=== PATIENT | female | born 1960 | race African-American/Black ===

== ENCOUNTER 2022-06-10 15:04 | Inpatient (IN) | payer BC, SELFPAY ==
[2022-06-10] VITALS (10 sets, daily range): BP systolic 126–168; BP diastolic 56–107; PULSE 89–160; RESP 12–34; TEMP 36.9; O2SAT 90–97; BMI 22.7
--- NOTE | 2022-06-10 16:43 | CRLHL7_ITS ---
For Patients: As a result of the Century Cures Act, medical imaging exams and procedure reports are released immediately into your electronic medical record. You may view this report before your referring provider. If you have questions, please contact your health care provider. Indication: Shortness of breath Comparison: None available. Technique: PA and lateral views of the chest Findings: There are bibasilar pleural effusions with adjacent compressive atelectasis versus infiltrates with mildly increased interstitial markings likely representing mild pulmonary edema. The cardiac silhouette is enlarged with minimal tortuous thoracic aorta. The bony thorax is grossly intact. Impression: Bibasilar pleural effusions with adjacent compressive atelectasis versus infiltrates and mild superimposed pulmonary edema. Dictated by Franco Jimenes MD @ 06/10/2022 6:24:46 PM (Electronically Signed)
--- NOTE | 2022-06-10 17:01 | ED.SOB ---
HPI - SOB/Dyspnea General Chief Complaint: Shortness of Breath/Dyspnea Stated Complaint: Short of Breath Retaining Fluid Time Seen by Provider: 06/10/22 16:00 Source: patient and RN notes reviewed Mode of arrival: ambulatory Limitations: no limitations History of Present Illness HPI Narrative: 61-year-old woman presenting to the emergency department with concern of some shortness of breath and swelling of her legs. Ten days at least. A 12 days ago ran out of what looks to be lisinopril and hydrochlorothiazide. 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 She had tried to reach her primary before departure but could not connect and so ran out of her medications again about 12 days ago. Is the only medication she takes endorses a history of hypertension and edema in the lower extremities also a history of right rib rotator cuff repair and then later when I inquire further apparently has had some anemia but does not treat this. Is not describing any melena or hematochezia. She denies any fevers not really having any pain she starts crying when I inquire further about her symptoms noting she is particularly short of air when she is lying down. She is afraid. I can also appreciate the puffiness that they are noting under her eyes as well. Denies a cardiac history beyond hypertension. Lately she also notes her stomach has seemingly been swollen. normally weighs 120 lb but thinks must be a lot more than that now. Has also been coughing. Has never retained fluid in her lungs before she says. Related Data Previous Rx's Medication Instructions Recorded furosemide 40 mg tablet 40 mg PO DAILY #10 tabs 06/10/22 metoprolol succinate 25 mg 25 mg PO DAILY #10 tabs 06/10/22 tablet,extended release 24 hr potassium chloride 20 mEq 20 meq PO DAILY #10 tabs 06/10/22 tablet,extended release Allergies Allergy/AdvReac Type Severity Reaction Status Date / Time Sulfa (Sulfonamide Allergy Unknown Verified 06/10/22 20:32 Antibiotics) Review of Systems Status of ROS: Reports: 10 or more systems reviewed and unremarkable except as noted in History and below [facility] Medical History (Updated 06/11/22 @ 02:39 by Domingo Monroe MD) Congestive heart failure (CHF) Hypertension Surgical History (Updated 08/15/22 @ 17:13 by Judith Chadwick RN) S/P rotator cuff repair Social History Highest level of school completed/degree received: 12th grade, no diploma Smoking Status: Former smoker What tobacco products do you use: cigarettes Smoking quit date/years: <= 15 years ago and cigars Do you use any of these nicotine containing products: None Second hand tobacco smoke exposure: Yes (from spouse) How often do you have a drink containing alcohol: monthly or less Alcohol type: wine How many standard drinks containing alcohol do you have on a typical day: 1 or 2 How often do you have six or more drinks on one occasion: Never AUDIT-C Alcohol total score: 1 Non-prescribed substance use: denies use Caffeine: Yes service: No Exam Narrative: Exam Narrative: pleasant. labored in breathing and tachypneic but able to complete sentences. has thinning hair On her head. Neck is supple. JVD is elevated lungs equal expansion excursion. Diminished breath sounds on the right lower lung field. Crepitus bibasilarly. CV is a little distant. Appears to be in regular rate and rhythm. Split S1 abdomen is protuberant soft nontender. Does appear to have a sensation of fluid wave on palpation. No peritoneal signs. Is moving all extremities without difficulty. Appears well perfused. There is a little more than 1+ pitting edema knees down bilaterally. Negative Homans. No pain to palpation. Const: Vital Signs, click to edit/add: Vital Signs - 24 hr 06/10/22 15:56 06/10/22 17:00 06/10/22 18:47 Temperature 98.5 F Pulse Rate Pulse Rate [Apical ] 89 93 Pulse Rate [Pulse Oximeter] Respiratory Rate 32 H 20 12 Blood Pressure [Le ft Arm] Blood Pressure [Le ft Upper Arm] 160/76 H 134/107 H 144/56 H Pulse Oximetry 94 97 95 Oxygen Delivery Me thod Room Air Room Air Oxygen Flow Rate 06/10/22 20:30 06/10/22 23:19 06/10/22 21:30 Temperature Pulse Rate Pulse Rate [Apical ] 160 H 92 Pulse Rate [Pulse Oximeter] Respiratory Rate 26 H 20 30 H Blood Pressure [Le ft Arm] Blood Pressure [Le ft Upper Arm] 161/82 H 150/77 H 168/83 H Pulse Oximetry 93 97 96 Oxygen Delivery Me thod Room Air Room Air Oxygen Flow Rate 06/10/22 18:00 06/10/22 22:00 06/10/22 23:00 Temperature Pulse Rate Pulse Rate [Apical ] 91 92 146 H Pulse Rate [Pulse Oximeter] Respiratory Rate 34 H 24 27 H Blood Pressure [Le ft Arm] Blood Pressure [Le ft Upper Arm] 145/74 H 142/63 H 150/77 H Pulse Oximetry 93 97 Oxygen Delivery Me thod Room Air Oxygen Flow Rate 06/10/22 23:30 06/11/22 00:00 06/11/22 00:30 Temperature Pulse Rate Pulse Rate [Apical ] 126 H 113 H 117 H Pulse Rate [Pulse Oximeter] Respiratory Rate 28 H 28 H 30 H Blood Pressure [Le ft Arm] Blood Pressure [Le ft Upper Arm] 126/62 126/62 121/61 Pulse Oximetry 90 90 94 Oxygen Delivery Me thod Room Air Room Air Oxygen Flow Rate 06/11/22 01:00 06/11/22 03:00 06/11/22 02:00 Temperature Pulse Rate Pulse Rate [Apical ] 122 H 72 130 H Pulse Rate [Pulse Oximeter] Respiratory Rate 31 H 26 H 28 H Blood Pressure [Le ft Arm] Blood Pressure [Le ft Upper Arm] 124/79 124/79 127/88 Pulse Oximetry 90 96 94 Oxygen Delivery Me thod Room Air Nasal Cannula Nasal Cannula Oxygen Flow Rate 2 2 06/11/22 02:30 06/11/22 01:30 06/11/22 03:47 Temperature 98.5 F Pulse Rate Pulse Rate [Apical ] 123 H 116 H Pulse Rate [Pulse Oximeter] 72 Respiratory Rate 26 H 26 H 20 Blood Pressure [Le ft Arm] 132/56 L Blood Pressure [Le ft Upper Arm] 125/74 133/74 Pulse Oximetry 98 89 94 Oxygen Delivery Me thod Nasal Cannula Room Air Room Air Oxygen Flow Rate 2 06/11/22 03:47 06/11/22 04:12 06/11/22 02:00 Temperature Pulse Rate 74 Pulse Rate [Apical ] Pulse Rate [Pulse Oximeter] Respiratory Rate 20 Blood Pressure [Le ft Arm] Blood Pressure [Le ft Upper Arm] Pulse Oximetry 94 94 Oxygen Delivery Me thod Room Air Nasal Cannula Oxygen Flow Rate 2 06/11/22 08:30 Temperature 98.5 F Pulse Rate Pulse Rate [Apical ] Pulse Rate [Pulse Oximeter] 75 Respiratory Rate 16 Blood Pressure [Le ft Arm] 107/85 Blood Pressure [Le ft Upper Arm] Pulse Oximetry 96 Oxygen Delivery Me thod Room Air Oxygen Flow Rate Documenting provider has reviewed patient's vital signs: yes Course Course Hospital Course: Exam and interview as above. Initial chest x-ray reviewed by me shows bibasilar small effusions and some pulmonary edema. EKG reviewed by me shows low amplitude generally rate of 87 it is in sinus rhythm though. Relatively speaking does appear to be some mild left atrial enlargement proBNP elevated as is D-dimer at 2.1 Consultations Consultation #1: anticipating admission i spoke initially with our hospitalist there was question of meeting criteria for admission; we did try to explore outpatient plan . later in course discussed with Cardiology confirming concerns of cardioversion Vital Signs Vital signs: Initial Vital Signs Temperature 98.5 F 06/10/22 15:56 Temperature Source Temporal Artery Scan 06/10/22 15:56 Pulse Rate 89 06/10/22 15:56 Pulse Rhythm 06/10/22 15:56 Respiratory Rate 32 H 06/10/22 15:56 Blood Pressure 160/76 H 06/10/22 15:56 Blood Pressure Mean 104 06/10/22 15:56 Pulse Oximetry 94 06/10/22 15:56 Oxygen Delivery Method 06/10/22 15:56 Vital Signs Temperature 98.5 F 06/10/22 15:56 Pulse Rate 89 06/10/22 15:56 Respiratory Rate 32 H 06/10/22 15:56 Blood Pressure 160/76 H 06/10/22 15:56 Pulse Oximetry 94 06/10/22 15:56 Oxygen Delivery Method 06/10/22 15:56 Temperature 98.5 F 06/11/22 08:30 Pulse Rate 75 06/11/22 08:30 Respiratory Rate 16 06/11/22 08:30 Blood Pressure 107/85 06/11/22 08:30 Pulse Oximetry 96 06/11/22 08:30 Oxygen Delivery Method 06/11/22 08:30 Oxygen Flow Rate 2 06/11/22 03:00 MDM - SOB/Dyspnea MDM Narrative Medical decision making narrative: with evidence of heart failure I did order 1 dose of sublingual nitroglycerin and 40 mg IV Lasix. She has had a couple of trips to the bathroom and notes herself to be feeling a little less full. Clearly is more energetic. Still a little labored in breathing. Hemoglobin low at 8.9. Generally low cell lines. INR little bit elevated 1.24. Venous blood gases WNL. chemistries unremarkable other than alkaline phosphatase 356. Troponin normal. Urinalysis with 2+ blood none on micro COVID testing negative. given occupation, dyspnea pulmonary embolus certainly the differential. My other concern is elevated alkaline phosphatase. CT scan chest abdomen pelvis is ordered. findings included --FINDINGS: CHEST There is a somewhat bulky, nodular appearing thyroid gland. The thoracic aorta is non aneurysmal with scattered atherosclerotic calcification. There is no filling defect to suggest pulmonary embolus. There are enlarged mediastinal and hilar lymph nodes. There is no definite axillary adenopathy. There is right greater than left basilar pleural effusion with adjacent compressive atelectasis. There is mild central bronchial thickening and minimal mucoid impaction of the lower lobe bronchi. There are mildly increased interstitial markings likely representing minimal pulmonary vascular congestion. The thoracic osseus structures are intact without fracture, lytic, or blastic lesion. The thoracic vertebral body heights are grossly maintained with minimal endplate Schmorl`s defects. There is no spondylolisthesis or displaced fracture. ABDOMEN AND PELVIS The liver is enlarged and markedly heterogeneous in appearance without obvious focal abnormality. There is minimal perihepatic fluid. There is mild periportal edema. The spleen is normal in attenuation and size. The gallbladder is somewhat contracted in appearance. There is no intrahepatic or common ductal dilatation. The stomach and duodenum are grossly unremarkable. There is moderate pancreatic atrophy. The adrenal glands are unremarkable without evidence of adenoma. The kidneys are preserved and corticomedullary differentiation. There is no hydronephrosis or radiopaque calculus. There is a moderate diffuse amount of intracolonic stool. There is minimal distal colonic diverticulosis. The appendix is unremarkable without significant inflammatory change. The abdominal aorta is nonaneurysmal with no significant atherosclerotic disease. The remaining solid pelvic viscera are otherwise grossly unremarkable. There are moderately prominent epigastric and retroperitoneal lymph nodes. Additional somewhat prominent bilateral pelvic sidewall and iliac chain lymph nodes are appreciated. The anterior abdominal wall is grossly intact without significant hernias. There is minimal fluid seen within the dependent pelvis. There is mild to moderate body wall edema. Demonstration of a somewhat heterogeneous appearing uterus with focal nonspecific enhancement expected at the location of the endometrial canal. Degenerative changes of the bilateral hips and sacroiliac joints are appreciated. The lumbar vertebral body heights are grossly maintained with mild straightening of the normal lumbar lordosis. There is no significant spondylolisthesis or displaced fracture. Impression: 1. Right greater than left basilar pleural effusion with adjacent compressive atelectasis and/or infiltrates with moderate central bronchial thickening. No evidence of pulmonary embolus. 2. Markedly enlarged heterogeneous somewhat nutmeg appearing liver which may represent sequela of hepatitis with periportal edema. 3. Mild ascites fluid seen throughout the 4 quadrants of the abdomen predominantly in the upper quadrants. 4. Enlarged epigastric, retroperitoneal, pelvic sidewall and inguinal lymph nodes which may be reactive in nature; however, a subtle, early lymphoproliferative malignancy may not be entirely excluded. 5. Somewhat heterogeneous thickened appearance of the endometrium with a focal area of enhancement. Consider further evaluation with pelvic ultrasound for improved characterization. Please note that all CT scans at this facility use dose modulation, iterative reconstruction, and/or weight-based dosing when appropriate to reduce radiation dose to as low as reasonably achievable. Dictated by Franco Jimenes MD @ 06/10/2022 8:05:57 PM I discussed potential admission as further evaluation could be done. Anxious in that regard as feels she has too much to do And is worried about being sent home from her [employer] job.. Apparently here was unwell and so she has been doing the driving. Anticipating departing the emergency department and about to order metoprolol succinate when she has demonstrated a run of tachycardia over 200. This spontaneously resolves. Returns again looks to be atrial fibrillation 170s- 80s and resolves then returns persistently. repeat EKG does show atrial fibrillation RVR rate of 163. During all of these episodes patient is asymptomatic. Initiated on 500 mL normal saline 20 g of diltiazem along with the metoprolol succinate 25 mg. Is also given IV magnesium. rate improves somewhat into the low 100s-1- teens. does not convert. Patient able to rest. once falls asleep does become further hypoxic. I would suspect that has been in atrial fibrillation more often than known and might be etiology of now systolic heart failure.. discussed with colleague and Cardiology with understandable concern of cardioversion. Would be candidate for anticoagulants. Considered RAISA and immediate cardioversion however no beds at [facility] or related hospitals. At this time I anticipate admission for rate control and establishment of anticoagulation. discussed other findings from CT imaging as well follow-up. Pending at this time is TSH Lab Data Labs: Lab Results 06/10/22 06/10/22 06/10/22 Range/Units 16:45 17:10 17:10 WBC 3.76 L (4.50-11.00) K/uL RBC 4.17 (4.00-5.20) m/uL Hgb 8.9 L (12.0-16.0) gm/dL Hct 30.2 L (33.0-51.0) % MCV 72 L (80-100) fL MCH 21 L (26-34) pg MCHC 30 L (32-36) gm/dL RDW Coeff of Geovanna 18.9 H (11.5-15.5) % Plt Count 86 L (140-440) K/uL Neut % (Auto) 41.8 L (42.0-72.0) % Lymph % (Auto) 45.7 H (20-44) % [place] % (Auto) 11.7 H (0.0-11.0) % Eos % (Auto) 0.5 (0.0-7.0) % Baso % (Auto) 0.3 (0.0-3.0) % Neut # (Auto) 1.60 L (1.7-7.0) K/uL Lymph # (Auto) 1.70 (0.90-2.90) K/uL [place] # (Auto) 0.40 (0.00-0.90) K/UL Eos # (Auto) 0.00 (0.00-0.50) K/uL Baso # (Auto) 0.00 (0.00-0.30) K/uL Abs Immat Gran (auto) 0.00 (0.00-0.30) K/uL Absolute Retic (0.03-0.08) # Percent Retic (0.5-2.0) % Immature Retic Fraction (3.0-15.9) % Retic Hgb Equivalent (29.0-35.0) pg INR 1.24 H (0.91-1.10) APTT 30 (23-33) Seconds D-Dimer Quant (PE/DVT) 2.12 H (0.00-0.50) ug/ml VBG pH (7.32-7.43) VBG pCO2 (40-50) mmHG VBG pO2 (25-47) mmHG VBG HCO3 (21-28) mmol/L Sodium (135-149) mmol/L Potassium (3.6-5.1) mmol/L Chloride (96-114) mmol/L Carbon Dioxide (20-32) mmol/L BUN (7-30) mg/dL Creatinine (0.5-1.5) mg/dL Estimated Creat Clear Estimated GFR ml/min Glucose (60-115) mg/dL Hemoglobin A1c (0-5.6) % Lactate (0.5-1.9) mmol/L Calcium (8.4-10.6) mg/dL Ionized Calcium Diandra (1.11-1.30) mmol/L Magnesium (1.5-2.6) mg/dL Ferritin (11.1-264.0) ng/mL Total Bilirubin (0.1-1.5) mg/dL Direct Bilirubin (0.0-0.5) mg/dL GGT (8-55) U/L AST (12-35) U/L ALT (4-35) U/L Alkaline Phosphatase (40-150) U/L Total Creatine Kinase (41-117) U/L Troponin I (0.01-0.04) ng/mL C-Reactive Protein (0.5-1.0) mg/dL NT-Pro-B Natriuret Pep (0-125) PG/mL Total Protein (6.0-8.3) g/dL Albumin (3.3-5.0) g/dL Lipase (23-300) U/L Procalcitonin (<0.50) ng/mL TSH (0.270-4.20) uIU/mL Urine Color (Yellow) Urine Appearance (Clear) Urine pH (5.0-8.5) Ur Specific [place] (1.000-1.030) Urine Protein (Negative) Urine Glucose (UA) (Negative) Urine Ketones (Negative) Urine Blood (Negative) Urine Nitrite (Negative) Urine Bilirubin (Negative) Urine Urobilinogen (0.2-1.0) Ur Leukocyte Esterase (Negative) Urine RBC (0-2) Urine WBC (0-5) Ur Squamous Epith Cells (None-Few) Urine Bacteria (None) SARS-CoV-2 (PCR) (Negative) POC Troponin I 0.00 L (0.01-0.04) ng/ml 06/10/22 06/10/22 06/10/22 Range/Units 17:10 17:10 17:10 WBC (4.50-11.00) K/uL RBC (4.00-5.20) m/uL Hgb (12.0-16.0) gm/dL Hct (33.0-51.0) % MCV (80-100) fL MCH (26-34) pg MCHC (32-36) gm/dL RDW Coeff of Geovanna (11.5-15.5) % Plt Count (140-440) K/uL Neut % (Auto) (42.0-72.0) % Lymph % (Auto) (20-44) % [place] % (Auto) (0.0-11.0) % Eos % (Auto) (0.0-7.0) % Baso % (Auto) (0.0-3.0) % Neut # (Auto) (1.7-7.0) K/uL Lymph # (Auto) (0.90-2.90) K/uL [place] # (Auto) (0.00-0.90) K/UL Eos # (Auto) (0.00-0.50) K/uL Baso # (Auto) (0.00-0.30) K/uL Abs Immat Gran (auto) (0.00-0.30) K/uL Absolute Retic (0.03-0.08) # Percent Retic (0.5-2.0) % Immature Retic Fraction (3.0-15.9) % Retic Hgb Equivalent (29.0-35.0) pg INR (0.91-1.10) APTT (23-33) Seconds D-Dimer Quant (PE/DVT) (0.00-0.50) ug/ml VBG pH 7.382 (7.32-7.43) VBG pCO2 38 L (40-50) mmHG VBG pO2 41.4 (25-47) mmHG VBG HCO3 22 (21-28) mmol/L Sodium 140 (135-149) mmol/L Potassium 4.3 (3.6-5.1) mmol/L Chloride 111 (96-114) mmol/L Carbon Dioxide 21 (20-32) mmol/L BUN 13 (7-30) mg/dL Creatinine 0.6 (0.5-1.5) mg/dL Estimated Creat Clear 43.45 Estimated GFR 101 ml/min Glucose 92 (60-115) mg/dL Hemoglobin A1c (0-5.6) % Lactate (0.5-1.9) mmol/L Calcium 8.5 (8.4-10.6) mg/dL Ionized Calcium Diandra (1.11-1.30) mmol/L Magnesium 1.7 (1.5-2.6) mg/dL Ferritin (11.1-264.0) ng/mL Total Bilirubin 0.9 (0.1-1.5) mg/dL Direct Bilirubin 0.5 (0.0-0.5) mg/dL GGT (8-55) U/L AST 34 (12-35) U/L ALT 23 (4-35) U/L Alkaline Phosphatase 356 H (40-150) U/L Total Creatine Kinase (41-117) U/L Troponin I < 0.01 L (0.01-0.04) ng/mL C-Reactive Protein 0.8 (0.5-1.0) mg/dL NT-Pro-B Natriuret Pep 2630 H (0-125) PG/mL Total Protein 6.3 (6.0-8.3) g/dL Albumin 3.3 (3.3-5.0) g/dL Lipase (23-300) U/L Procalcitonin 0.10 (<0.50) ng/mL TSH (0.270-4.20) uIU/mL Urine Color (Yellow) Urine Appearance (Clear) Urine pH (5.0-8.5) Ur Specific [place] (1.000-1.030) Urine Protein (Negative) Urine Glucose (UA) (Negative) Urine Ketones (Negative) Urine Blood (Negative) Urine Nitrite (Negative) Urine Bilirubin (Negative) Urine Urobilinogen (0.2-1.0) Ur Leukocyte Esterase (Negative) Urine RBC (0-2) Urine WBC (0-5) Ur Squamous Epith Cells (None-Few) Urine Bacteria (None) SARS-CoV-2 (PCR) Negative SARS-CoV-2 (Negative) POC Troponin I (0.01-0.04) ng/ml 06/10/22 06/10/22 06/11/22 Range/Units 17:10 17:30 08:43 WBC 3.71 L (4.50-11.00) K/uL RBC 3.98 L (4.00-5.20) m/uL Hgb 8.5 L (12.0-16.0) gm/dL Hct 28.6 L (33.0-51.0) % MCV 72 L (80-100) fL MCH 21 L (26-34) pg MCHC 30 L (32-36) gm/dL RDW Coeff of Geovanna (11.5-15.5) % Plt Count 75 L (140-440) K/uL Neut % (Auto) (42.0-72.0) % Lymph % (Auto) (20-44) % [place] % (Auto) (0.0-11.0) % Eos % (Auto) (0.0-7.0) % Baso % (Auto) (0.0-3.0) % Neut # (Auto) (1.7-7.0) K/uL Lymph # (Auto) (0.90-2.90) K/uL [place] # (Auto) (0.00-0.90) K/UL Eos # (Auto) (0.00-0.50) K/uL Baso # (Auto) (0.00-0.30) K/uL Abs Immat Gran (auto) (0.00-0.30) K/uL Absolute Retic 0.09 H (0.03-0.08) # Percent Retic 2.2 H (0.5-2.0) % Immature Retic Fraction 20.3 H (3.0-15.9) % Retic Hgb Equivalent 17.9 L (29.0-35.0) pg INR (0.91-1.10) APTT (23-33) Seconds D-Dimer Quant (PE/DVT) (0.00-0.50) ug/ml VBG pH (7.32-7.43) VBG pCO2 (40-50) mmHG VBG pO2 (25-47) mmHG VBG HCO3 (21-28) mmol/L Sodium (135-149) mmol/L Potassium (3.6-5.1) mmol/L Chloride (96-114) mmol/L Carbon Dioxide (20-32) mmol/L BUN (7-30) mg/dL Creatinine (0.5-1.5) mg/dL Estimated Creat Clear Estimated GFR ml/min Glucose (60-115) mg/dL Hemoglobin A1c (0-5.6) % Lactate (0.5-1.9) mmol/L Calcium (8.4-10.6) mg/dL Ionized Calcium Diandra (1.11-1.30) mmol/L Magnesium (1.5-2.6) mg/dL Ferritin (11.1-264.0) ng/mL Total Bilirubin (0.1-1.5) mg/dL Direct Bilirubin (0.0-0.5) mg/dL GGT (8-55) U/L AST (12-35) U/L ALT (4-35) U/L Alkaline Phosphatase (40-150) U/L Total Creatine Kinase 74 (41-117) U/L Troponin I (0.01-0.04) ng/mL C-Reactive Protein (0.5-1.0) mg/dL NT-Pro-B Natriuret Pep (0-125) PG/mL Total Protein (6.0-8.3) g/dL Albumin (3.3-5.0) g/dL Lipase (23-300) U/L Procalcitonin (<0.50) ng/mL TSH (0.270-4.20) uIU/mL Urine Color Yellow (Yellow) Urine Appearance Clear (Clear) Urine pH 5.5 (5.0-8.5) Ur Specific [place] 1.020 (1.000-1.030) Urine Protein Negative (Negative) Urine Glucose (UA) Negative (Negative) Urine Ketones Negative (Negative) Urine Blood 2+ A (Negative) Urine Nitrite Negative (Negative) Urine Bilirubin Negative (Negative) Urine Urobilinogen 1.0 (0.2-1.0) Ur Leukocyte Esterase Negative (Negative) Urine RBC 0-2 (0-2) Urine WBC 2-5 (0-5) Ur Squamous Epith Cells None (None-Few) Urine Bacteria None (None) SARS-CoV-2 (PCR) (Negative) POC Troponin I (0.01-0.04) ng/ml 06/11/22 06/11/22 06/11/22 Range/Units 08:43 08:43 08:43 WBC (4.50-11.00) K/uL RBC (4.00-5.20) m/uL Hgb (12.0-16.0) gm/dL Hct (33.0-51.0) % MCV (80-100) fL MCH (26-34) pg MCHC (32-36) gm/dL RDW Coeff of Geovanna (11.5-15.5) % Plt Count (140-440) K/uL Neut % (Auto) (42.0-72.0) % Lymph % (Auto) (20-44) % [place] % (Auto) (0.0-11.0) % Eos % (Auto) (0.0-7.0) % Baso % (Auto) (0.0-3.0) % Neut # (Auto) (1.7-7.0) K/uL Lymph # (Auto) (0.90-2.90) K/uL [place] # (Auto) (0.00-0.90) K/UL Eos # (Auto) (0.00-0.50) K/uL Baso # (Auto) (0.00-0.30) K/uL Abs Immat Gran (auto) (0.00-0.30) K/uL Absolute Retic (0.03-0.08) # Percent Retic (0.5-2.0) % Immature Retic Fraction (3.0-15.9) % Retic Hgb Equivalent (29.0-35.0) pg INR 1.24 H (0.91-1.10) APTT (23-33) Seconds D-Dimer Quant (PE/DVT) (0.00-0.50) ug/ml VBG pH (7.32-7.43) VBG pCO2 (40-50) mmHG VBG pO2 (25-47) mmHG VBG HCO3 (21-28) mmol/L Sodium 142 (135-149) mmol/L Potassium 4.2 (3.6-5.1) mmol/L Chloride 112 (96-114) mmol/L Carbon Dioxide 23 (20-32) mmol/L BUN 14 (7-30) mg/dL Creatinine 0.7 (0.5-1.5) mg/dL Estimated Creat Clear 43.45 Estimated GFR 97 ml/min Glucose 92 (60-115) mg/dL Hemoglobin A1c (0-5.6) % Lactate (0.5-1.9) mmol/L Calcium 8.4 (8.4-10.6) mg/dL Ionized Calcium Diandra (1.11-1.30) mmol/L Magnesium 2.1 (1.5-2.6) mg/dL Ferritin 71.4 (11.1-264.0) ng/mL Total Bilirubin 0.8 (0.1-1.5) mg/dL Direct Bilirubin (0.0-0.5) mg/dL GGT 149 H (8-55) U/L AST 30 (12-35) U/L ALT 22 (4-35) U/L Alkaline Phosphatase 343 H (40-150) U/L Total Creatine Kinase (41-117) U/L Troponin I < 0.01 L (0.01-0.04) ng/mL C-Reactive Protein 0.8 (0.5-1.0) mg/dL NT-Pro-B Natriuret Pep 3360 H (0-125) PG/mL Total Protein 6.1 (6.0-8.3) g/dL Albumin 3.2 L (3.3-5.0) g/dL Lipase 45 (23-300) U/L Procalcitonin 0.11 (<0.50) ng/mL TSH < 0.015 L (0.270-4.20) uIU/mL Urine Color (Yellow) Urine Appearance (Clear) Urine pH (5.0-8.5) Ur Specific [place] (1.000-1.030) Urine Protein (Negative) Urine Glucose (UA) (Negative) Urine Ketones (Negative) Urine Blood (Negative) Urine Nitrite (Negative) Urine Bilirubin (Negative) Urine Urobilinogen (0.2-1.0) Ur Leukocyte Esterase (Negative) Urine RBC (0-2) Urine WBC (0-5) Ur Squamous Epith Cells (None-Few) Urine Bacteria (None) SARS-CoV-2 (PCR) (Negative) POC Troponin I (0.01-0.04) ng/ml 06/11/22 06/11/22 Range/Units 08:43 08:43 WBC (4.50-11.00) K/uL RBC (4.00-5.20) m/uL Hgb (12.0-16.0) gm/dL Hct (33.0-51.0) % MCV (80-100) fL MCH (26-34) pg MCHC (32-36) gm/dL RDW Coeff of Geovanna (11.5-15.5) % Plt Count (140-440) K/uL Neut % (Auto) (42.0-72.0) % Lymph % (Auto) (20-44) % [place] % (Auto) (0.0-11.0) % Eos % (Auto) (0.0-7.0) % Baso % (Auto) (0.0-3.0) % Neut # (Auto) (1.7-7.0) K/uL Lymph # (Auto) (0.90-2.90) K/uL [place] # (Auto) (0.00-0.90) K/UL Eos # (Auto) (0.00-0.50) K/uL Baso # (Auto) (0.00-0.30) K/uL Abs Immat Gran (auto) (0.00-0.30) K/uL Absolute Retic (0.03-0.08) # Percent Retic (0.5-2.0) % Immature Retic Fraction (3.0-15.9) % Retic Hgb Equivalent (29.0-35.0) pg INR (0.91-1.10) APTT (23-33) Seconds D-Dimer Quant (PE/DVT) (0.00-0.50) ug/ml VBG pH (7.32-7.43) VBG pCO2 (40-50) mmHG VBG pO2 (25-47) mmHG VBG HCO3 (21-28) mmol/L Sodium (135-149) mmol/L Potassium (3.6-5.1) mmol/L Chloride (96-114) mmol/L Carbon Dioxide (20-32) mmol/L BUN (7-30) mg/dL Creatinine (0.5-1.5) mg/dL Estimated Creat Clear Estimated GFR ml/min Glucose (60-115) mg/dL Hemoglobin A1c 5.15 (0-5.6) % Lactate 1.1 (0.5-1.9) mmol/L Calcium (8.4-10.6) mg/dL Ionized Calcium [place] 1.12 (1.11-1.30) mmol/L Magnesium (1.5-2.6) mg/dL Ferritin (11.1-264.0) ng/mL Total Bilirubin (0.1-1.5) mg/dL Direct Bilirubin (0.0-0.5) mg/dL GGT (8-55) U/L AST (12-35) U/L ALT (4-35) U/L Alkaline Phosphatase (40-150) U/L Total Creatine Kinase (41-117) U/L Troponin I (0.01-0.04) ng/mL C-Reactive Protein (0.5-1.0) mg/dL NT-Pro-B Natriuret Pep (0-125) PG/mL Total Protein (6.0-8.3) g/dL Albumin (3.3-5.0) g/dL Lipase (23-300) U/L Procalcitonin (<0.50) ng/mL TSH (0.270-4.20) uIU/mL Urine Color (Yellow) Urine Appearance (Clear) Urine pH (5.0-8.5) Ur Specific [place] (1.000-1.030) Urine Protein (Negative) Urine Glucose (UA) (Negative) Urine Ketones (Negative) Urine Blood (Negative) Urine Nitrite (Negative) Urine Bilirubin (Negative) Urine Urobilinogen (0.2-1.0) Ur Leukocyte Esterase (Negative) Urine RBC (0-2) Urine WBC (0-5) Ur Squamous Epith Cells (None-Few) Urine Bacteria (None) SARS-CoV-2 (PCR) (Negative) POC Troponin I (0.01-0.04) ng/ml Critical Care Time Critical Care Time Critical Care Time: Yes Attestation: The patient required my highest level preparedness to intervene emergently and I personally spent this critical care time directly and personally managing the patient. This critical care time included: Obtaining a history; Examining the patient; Pulse oximetry; Ordering and reviewing of studies; Arranging urgent treatment with development of a management plan; Evaluation of patients response to treatment; Frequent reassessment discussions with other providers. This critical care time was performed to assess and manage the high probability of imminent life-threatening deterioration that could result in multiorgan failure. It was exclusive of separate billable procedures and treating other patients and teaching time. Total Critical Care Time in Minutes: 50 Discharge Plan Discharge Clinical Impression: Abdominal ascites, Congestive heart failure, Tachyarrhythmia, LAD (lymphadenopathy), retroperitoneal, Atrial fibrillation with rapid ventricular response Patient Disposition: Admitted As Inpatient Condition: Improved
[2022-06-10 17:29] LABS: HCO3 VBG 22 mmol/L (21-28); PCO2 VBG 38 mmHG (40-50); PO2 VBG 41.4 mmHG (25-47); pH VBG 7.382 (7.32-7.43)
[2022-06-10 17:33] LABS: Basophils Percent Auto 0.3 % (0.0-3.0); Eosinophils Percent Auto 0.5 % (0.0-7.0); Hematocrit 30.2 % (33.0-51.0); Hemoglobin* 8.9 gm/dL (12.0-16.0); Lymphocytes Percent Auto 45.7 % (20-44); Mean Corpuscular HGB Conc 30 gm/dL (32-36); Mean Corpuscular Hemoglobin 21 pg (26-34); Mean Corpuscular Volume 72 fL (80-100); Monocytes Percent Auto 11.7 % (0.0-11.0); Neutrophils Percent Auto 41.8 % (42.0-72.0); Platelet Count* 86 K/uL (140-440); RDW Coefficient of Variation % 18.9 % (11.5-15.5); Red Blood Count 4.17 m/uL (4.00-5.20); Slide Review Reflex No; White Blood Count* 3.76 K/uL (4.50-11.00)
[2022-06-10 17:38] LABS: Appearance Urine Clear (Clear); Bilirubin Urine Negative (Negative); Blood Urine 2+ (Negative); Color Urine Yellow (Yellow); Glucose Urine Negative (Negative); Ketones Urine Negative (Negative); Leukocyte Esterase Urine Negative (Negative); Nitrite Urine Negative (Negative); Protein Urine Negative (Negative); pH Urine 5.5 (5.0-8.5)
[2022-06-10 17:47] LABS: RBC Urine 0-2 (0-2)
[2022-06-10 17:48] LABS: Albumin* 3.3 g/dL (3.3-5.0); Chloride* 111 mmol/L (96-114); Sodium* 140 mmol/L (135-149)
[2022-06-10 17:49] LABS: Potassium* 4.3 mmol/L (3.6-5.1)
[2022-06-10 17:51] LABS: Alkaline Phosphatase* 356 U/L (40-150); Aspartate Amino Transferase* 34 U/L (12-35); Bilirubin Direct* 0.5 mg/dL (0.0-0.5); Bilirubin Total* 0.9 mg/dL (0.1-1.5); Blood Urea Nitrogen* 13 mg/dL (7-30); Carbon Dioxide* 21 mmol/L (20-32); Creatinine* 0.6 mg/dL (0.5-1.5); Est. Creatinine Clearance* 43.45; Estimated Glomerular Filt Rate 101 ml/min; Glucose* 92 mg/dL (60-115); INR 1.24 (0.91-1.10); Total Protein* 6.3 g/dL (6.0-8.3)
[2022-06-10 17:52] LABS: Alanine Aminotransferase* 23 U/L (4-35); Calcium* 8.5 mg/dL (8.4-10.6); Magnesium* 1.7 mg/dL (1.5-2.6); Partial Thromboplastin Time* 30 Seconds (23-33)
[2022-06-10 17:54] LABS: C Reactive Protein* 0.8 mg/dL (0.5-1.0); D Dimer Quantitative* 2.12 ug/ml (0.00-0.50)
[2022-06-10 18:00] LABS: NT Pro B Type NatriureticPept* 2630 PG/mL (0-125)
[2022-06-10 18:24] LABS: Troponin I* < 0.01 ng/mL (0.01-0.04)
--- NOTE | 2022-06-10 18:25 | CT_ITS ---
Final Report Patient: CHRISTINE BARBER Facility:?[facility] Patient ID:?[id number] Site Patient ID:?[id number]. Site :?[id number] Study:?CT Chest/Abd/Pelvis PE W/ISOVUE 370 95CC-06/10/2022 7:15:27 PM Ordering Physician:Nahun Lane Final Report: Indication: Abdominal distension, hypoxia, concern for ascites in fluid overload Technique: Volumetric multidetector CT images of the chest, abdomen, and pelvis were obtained after the administration of intravenous contrast. 95 cc Isovue 370 low osmolar intravenous contrast Comparison: None available. FINDINGS: CHEST There is a somewhat bulky, nodular appearing thyroid gland. The thoracic aorta is non aneurysmal with scattered atherosclerotic calcification. There is no filling defect to suggest pulmonary embolus. There are enlarged mediastinal and hilar lymph nodes. There is no definite axillary adenopathy. There is right greater than left basilar pleural effusion with adjacent compressive atelectasis. There is mild central bronchial thickening and minimal mucoid impaction of the lower lobe bronchi. There are mildly increased interstitial markings likely representing minimal pulmonary vascular congestion. The thoracic osseus structures are intact without fracture, lytic, or blastic lesion. The thoracic vertebral body heights are grossly maintained with minimal endplate Schmorl`s defects. There is no spondylolisthesis or displaced fracture. ABDOMEN AND PELVIS The liver is enlarged and markedly heterogeneous in appearance without obvious focal abnormality. There is minimal perihepatic fluid. There is mild periportal edema. The spleen is normal in attenuation and size. The gallbladder is somewhat contracted in appearance. There is no intrahepatic or common ductal dilatation. The stomach and duodenum are grossly unremarkable. There is moderate pancreatic atrophy. The adrenal glands are unremarkable without evidence of adenoma. The kidneys are preserved and corticomedullary differentiation. There is no hydronephrosis or radiopaque calculus. There is a moderate diffuse amount of intracolonic stool. There is minimal distal colonic diverticulosis. The appendix is unremarkable without significant inflammatory change. The abdominal aorta is nonaneurysmal with no significant atherosclerotic disease. The remaining solid pelvic viscera are otherwise grossly unremarkable. There are moderately prominent epigastric and retroperitoneal lymph nodes. Additional somewhat prominent bilateral pelvic sidewall and iliac chain lymph nodes are appreciated. The anterior abdominal wall is grossly intact without significant hernias. There is minimal fluid seen within the dependent pelvis. There is mild to moderate body wall edema. Demonstration of a somewhat heterogeneous appearing uterus with focal nonspecific enhancement expected at the location of the endometrial canal. Degenerative changes of the bilateral hips and sacroiliac joints are appreciated. The lumbar vertebral body heights are grossly maintained with mild straightening of the normal lumbar lordosis. There is no significant spondylolisthesis or displaced fracture. Impression: 1. Right greater than left basilar pleural effusion with adjacent compressive atelectasis and/or infiltrates with moderate central bronchial thickening. No evidence of pulmonary embolus. 2. Markedly enlarged heterogeneous somewhat nutmeg appearing liver which may represent sequela of hepatitis with periportal edema. 3. Mild ascites fluid seen throughout the 4 quadrants of the abdomen predominantly in the upper quadrants. 4. Enlarged epigastric, retroperitoneal, pelvic sidewall and inguinal lymph nodes which may be reactive in nature; however, a subtle, early lymphoproliferative malignancy may not be entirely excluded. 5. Somewhat heterogeneous thickened appearance of the endometrium with a focal area of enhancement. Consider further evaluation with pelvic ultrasound for improved characterization. Please note that all CT scans at this facility use dose modulation, iterative reconstruction, and/or weight-based dosing when appropriate to reduce radiation dose to as low as reasonably achievable. Dictated by Franco Jimenes MD @ 06/10/2022 8:05:57 PM (Electronic Signature)
[2022-06-10 18:47] LABS: SARS PCR* Negative SARS-CoV-2 (Negative)
[2022-06-10] MEDS: FUROSEMIDE 10 MG/ML inj 40 MG IVP (19:56)
[2022-06-10] MEDS: NITROGLYCERIN 0.4 MG TAB.SUBL SUBLINGUAL (19:56)
--- NOTE | 2022-06-10 20:11 | CRLHL7_ITS ---
For Patients: As a result of the Century Cures Act, medical imaging exams and procedure reports are released immediately into your electronic medical record. You may view this report before your referring provider. If you have questions, please contact your health care provider. INDICATION: Endometrial thickening. TECHNIQUE: Ultrasound pelvis transabdominal and transvaginal for better assessment or to better visualize the endometrium. Real-time sonographic images with spectral and color Doppler imaging of the ovaries were obtained. COMPARISON: CT abdomen and pelvis 06/10/2022. FINDINGS: Evaluation limited by poor acoustic windows due to overlying bowel gas. Uterus: 5.0 x 2.6 x 3.0 cm. Heterogeneous appearance of the endometrium measuring 6 mm. Hypoechoic lesion in the mid uterine body measuring approximately 0.9 x 0.5 x 1.1 cm, likely corresponding to the area of focal enhancement on prior CT abdomen and pelvis. The ovaries are not visualized. Cul-de-sac: Small amount of free fluid likely corresponding to ascites seen on prior CT abdomen and pelvis. IMPRESSION: 1. Heterogeneous mildly thickened endometrium, nonspecific. 2. Hypoechoic lesion in the mid uterine body, likely corresponding to the area of focal enhancement on prior CT abdomen and pelvis. Differential considerations include submucosal fibroid or polyp, however endometrial mass is not excluded. Consider further evaluation with MRI of the pelvis or tissue sampling. 3. Nonvisualization of the ovaries. Dictated by Raul Bruce MD @ 06/10/2022 10:32:09 PM (Electronically Signed)
[2022-06-10 21:36] LABS: Creatine Kinase* 74 U/L (41-117)
[2022-06-10] MEDS: METOPROLOL SUCCINATE (XL) 25 MG TAB PO (22:47)
[2022-06-10] MEDS: dilTIAZem 5 MG/ML inj 20 MG IVP (23:18)
[2022-06-11] VITALS (12 sets, daily range): BP systolic 107–133; BP diastolic 56–88; PULSE 67–130; RESP 16–31; TEMP 36.3–36.9; O2SAT 89–98; BMI 22.8
[2022-06-11] MEDS: 0.9 % SODIUM CHLORIDE 500 ML 500 ML 6000 ML IV (00:10)
[2022-06-11] MEDS: MAGNESIUM SULFATE 2 GM/50 ML PIGGYBACK IVPB (01:09)
--- NOTE | 2022-06-11 03:08 | PC.NURSE ---
Pt converted to NSR at 0236- verified with clinical access. MD Monroe updated.
--- NOTE | 2022-06-11 03:10 | ED.NURSE ---
EKG completed, pt converted back to NSR.
--- NOTE | 2022-06-11 03:30 | ED.NURSE ---
report to Jerome JAY ms.
--- NOTE | 2022-06-11 05:11 | PC.NURSE ---
Dr. Brock notified of pt. converting back to A.Fib/RVR from NSR @0275. evaluated pt., ordered for metoprolol 5mg IVP once. Will reassess after administration
[2022-06-11] MEDS: METOPROLOL TARTRATE 1 MG/ML inj 5 MG IVP (05:17)
--- NOTE | 2022-06-11 05:44 | PM.IMCN1 ---
Date of Consult Consult date: 06/11/22 Primary Care Provider: Not a Local Provider Consult Narrative Narrative: Tania Veras is a 61 year old female [facility] Medical History (Updated 06/11/22 @ 02:39 by Domingo Monroe MD) Congestive heart failure (CHF) Hypertension Surgical History (Updated 06/10/22 @ 17:13 by Judith Chadwick RN) S/P rotator cuff repair Social History Highest level of school completed/degree received: 12th grade, no diploma Smoking Status: Former smoker What tobacco products do you use: cigarettes Smoking quit date/years: <= 15 years ago and cigars Do you use any of these nicotine containing products: None Second hand tobacco smoke exposure: Yes (from spouse) How often do you have a drink containing alcohol: monthly or less Alcohol type: wine How many standard drinks containing alcohol do you have on a typical day: 1 or 2 How often do you have six or more drinks on one occasion: Never AUDIT-C Alcohol total score: 1 Non-prescribed substance use: denies use Caffeine: Yes service: No Meds Home Medications and Allergies Allergies Allergy/AdvReac Type Severity Reaction Status Date / Time Sulfa (Sulfonamide Allergy Unknown Verified 06/10/22 20:32 Antibiotics) Exam Const: Vital Signs, click to edit/add: Vital Signs - 24 hr 06/10/22 15:56 06/10/22 17:00 06/10/22 18:47 Temperature 98.5 F Pulse Rate Pulse Rate [Apical ] 89 93 Pulse Rate [Pulse Oximeter] Respiratory Rate 32 H 20 12 Blood Pressure [Le ft Arm] Blood Pressure [Le ft Upper Arm] 160/76 H 134/107 H 144/56 H Pulse Oximetry 94 97 95 Oxygen Delivery Me thod Room Air Room Air Oxygen Flow Rate 06/10/22 20:30 06/10/22 23:19 06/10/22 21:30 Temperature Pulse Rate Pulse Rate [Apical ] 160 H 92 Pulse Rate [Pulse Oximeter] Respiratory Rate 26 H 20 30 H Blood Pressure [Le ft Arm] Blood Pressure [Le ft Upper Arm] 161/82 H 150/77 H 168/83 H Pulse Oximetry 93 97 96 Oxygen Delivery Me thod Room Air Room Air Oxygen Flow Rate 06/10/22 18:00 06/10/22 22:00 06/10/22 23:00 Temperature Pulse Rate Pulse Rate [Apical ] 91 92 146 H Pulse Rate [Pulse Oximeter] Respiratory Rate 34 H 24 27 H Blood Pressure [Le ft Arm] Blood Pressure [Le ft Upper Arm] 145/74 H 142/63 H 150/77 H Pulse Oximetry 93 97 Oxygen Delivery Me thod Room Air Oxygen Flow Rate 06/10/22 23:30 06/11/22 00:00 06/11/22 00:30 Temperature Pulse Rate Pulse Rate [Apical ] 126 H 113 H 117 H Pulse Rate [Pulse Oximeter] Respiratory Rate 28 H 28 H 30 H Blood Pressure [Le ft Arm] Blood Pressure [Le ft Upper Arm] 126/62 126/62 121/61 Pulse Oximetry 90 90 94 Oxygen Delivery Me thod Room Air Room Air Oxygen Flow Rate 06/11/22 01:00 06/11/22 03:00 06/11/22 02:00 Temperature Pulse Rate Pulse Rate [Apical ] 122 H 72 130 H Pulse Rate [Pulse Oximeter] Respiratory Rate 31 H 26 H 28 H Blood Pressure [Le ft Arm] Blood Pressure [Le ft Upper Arm] 124/79 124/79 127/88 Pulse Oximetry 90 96 94 Oxygen Delivery Me thod Room Air Nasal Cannula Nasal Cannula Oxygen Flow Rate 2 2 06/11/22 02:30 06/11/22 01:30 06/11/22 03:47 Temperature 98.5 F Pulse Rate Pulse Rate [Apical ] 123 H 116 H Pulse Rate [Pulse Oximeter] 72 Respiratory Rate 26 H 26 H 20 Blood Pressure [Le ft Arm] 132/56 L Blood Pressure [Le ft Upper Arm] 125/74 133/74 Pulse Oximetry 98 89 94 Oxygen Delivery Me thod Nasal Cannula Room Air Room Air Oxygen Flow Rate 2 06/11/22 03:47 06/11/22 04:12 06/11/22 02:00 Temperature Pulse Rate 74 Pulse Rate [Apical ] Pulse Rate [Pulse Oximeter] Respiratory Rate 20 Blood Pressure [Le ft Arm] Blood Pressure [Le ft Upper Arm] Pulse Oximetry 94 94 Oxygen Delivery Me thod Room Air Nasal Cannula Oxygen Flow Rate 2 Labs Labs: Short CBC 06/10/22 Range/Units 17:10 WBC 3.76 L (4.50-11.00) K/uL Hgb 8.9 L (12.0-16.0) gm/dL Hct 30.2 L (33.0-51.0) % Plt Count 86 L (140-440) K/uL BMP 06/10/22 17:10 Sodium 140 Potassium 4.3 Chloride 111 Carbon Dioxide 21 BUN 13 Creatinine 0.6 Glucose 92 Calcium 8.5 Cardiac Enzymes 06/10/22 06/10/22 Range/Units 17:10 17:10 Total Creatine Kinase 74 (41-117) U/L Troponin I < 0.01 L (0.01-0.04) ng/mL Liver Function 06/10/22 Range/Units 17:10 Total Bilirubin 0.9 (0.1-1.5) mg/dL Direct Bilirubin 0.5 (0.0-0.5) mg/dL AST 34 (12-35) U/L ALT 23 (4-35) U/L Alkaline Phosphatase 356 H (40-150) U/L Albumin 3.3 (3.3-5.0) g/dL Urine 06/10/22 Range/Units 17:30 Urine Color Yellow (Yellow) Urine Appearance Clear (Clear) Urine pH 5.5 (5.0-8.5) Ur Specific [place] 1.020 (1.000-1.030) Urine Protein Negative (Negative) Urine Glucose (UA) Negative (Negative) Assessment and Plan Assessment and plan (1) Abdominal ascites: Status: Acute (2) Tachyarrhythmia: Status: Acute (3) LAD (lymphadenopathy), retroperitoneal: Status: Acute (4) Atrial fibrillation with rapid ventricular response: Status: Acute Plan [facility] Hospitalist Consult for Admission eHospitalist was contacted with request of consultation for admission. 61-year-old female, past medical history significant for hypertension, who presents to local ED with complaints of shortness of breath. Patient reports approximately 10-day history of shortness of breath and lower extremity swelling. Patient describes dyspnea on exertion, and feeling okay at rest. She denies any associated chest pain, palpitations, lightheadedness/dizziness, orthopnea. She endorses lower extremity swelling, but states it currently is improved. She reports taking lisinopril, hydrochlorothiazide, but ran out 3 weeks ago. Other than shortness of breath and leg swelling, she denies any other complaints. Denies any fevers, sick contacts. Has been eating/drinking normally. Noted to be anemic, patient denies any recent hematochezia, melena. States she had a colonoscopy a long time ago. Does not know why she is anemic or if a work-up has been done. Home Medications: see EMR Pertinent Medical History: Reviewed. Pertinent Social History: Former smoker, quit approximately 1 month ago. Denies alcohol or illicit drug use. Exam (performed via interactive video with assistance of bedside nurse): General: alert, cooperative, no acute distress HEENT: oral mucosa pink and moist without erythema Lungs: clear to auscultation bilaterally without crackle or wheeze CV: Tachycardic, irregularly irregular rhythm Abd: denies tenderness and does not exhibit signs of pain with palpation done by bedside nurse. Mild distention Ext: 1+ edema in bilateral lower extremities Skin: no rashes, bruises or lesions appreciated on gross visualization of exposed skin Neuro: alert, oriented x 3. facial muscles grossly intact, moves all extremities without any significant focal deficit appreciated by nurse #A. fib with RVR #MARES #Lower extremity edema ? Patient given 40 mg IV Lasix in the ED with improvement in symptoms. Patient then flipped into A. fib with RVR. Patient received 20 mg diltiazem, 25 mg Toprol. After evaluation on the floor, patient noted to have heart rates back in the 120s. 5 mg IV Lopressor ordered. Can consider diltiazem drip if rates fail to improve. ? Recommend obtaining echo if available ?We will need to discuss initiation of anticoagulation. May want to hold off if biopsy planned, see below. #Heterogenous appearance of liver #Diffuse lymphadenopathy ? Likely warrants further work-up, i.e. biopsy Thank you for including [facility] Hospitalist in this patient's care. This service is available for further assistance as requested by your care team by calling [phone]. Dictation Comment: This document was transcribed utilizing [id number] technology ([employer]T ([employer])). Occasional mistranslation may occur.
--- NOTE | 2022-06-11 05:48 | PC.NURSE ---
Shift 7p-7a: Received pt. from ER at 3:40am into room CCU2. Pt. AOx4, following commands, ambulating independently from stretcher to bed. Pt.'s HR upon admission was NSR with HR 70's, but converted to A.Fib/RVR at 0446. Dr. Brock notified who ordered for metoprolol 5mg IVP once. Currently pt. back in NSR but converts back and forth between A.Fib/RVR and NSR intermittently. Per MD, plan for diltiazem gtt if HR not controlled with metoprolol IVP. Pt. placed on 1L NC for desaturation to 87% during sleep, currently satting 97%. Pt. ambulates to toilet, voiding w/o difficulty. Pt. has 1+ edema in BLE, puffiness under eyes and cheeks. Pt. denies headaches/dizziness, N/V, chest pain or generalized pain at this time. Pt. has ECHO ordered for today. Pt. resting in bed with spouse at bedside, no complaints at this time. Plan to continue tele monitoring, ECHO testing
--- NOTE | 2022-06-11 07:59 | P.IMHP_ITS ---
Hospitalist- H&P: HPI History of Present Illness Date Seen: 06/11/22 Chief complaint: Short of Breath Retaining Fluid Narrative: ADMISSION HISTORY AND PHYSICAL - HOSPITALIST Chief Complaint: I can not catch my breath HPI: This is a 61-year-old female who presented to our ED with worsening shortness of breath. She is an over the road long-snaker tractor driver. She and her ride together. However she is the only 1 driving. She has noted over the last week increasing shortness of breath. States she has to stop and catch her breath after climbing in and out of the truck. She has difficulty walking in to the way station or truck station. No chest pain. Please see ER note for further workup. She was noted to be in mild CHF and felt better after IV Lasix. She wanted to leave. She then developed AFib with RVR, however asymptomatic. She was asked to stay for further evaluation management. She received oral Lopressor, IV diltiazem and then later IV metoprolol to help control her rate. She has flipped in and out of AFib a couple of times. Curre ntly she is in sinus. She has not required oxygen. She is denying chest pain. No evidence of acute coronary syndrome. Routine and associated labs drawn, however reveal thrombocytopenia, anemia, coagulopathy, chronic liver disease, hyperthyroidism. Her imaging also is concerning for possible pneumonia versus atelectasis. Imaging also reveals a nodular nutmeg liver with ascites. So while clinically she was asymptomatic to the runs of AFib with RVR and felt better after IV Lasix it was apparent that she had several chronic medical conditions in play. Patient is adamant that she must return to the road either tonight or tomorrow at the latest. She will lose her truck and be sent home by air from her company. However her would likely be left behind in [place]. There is significant social stressors and financial concerns in the background. Upon arrival to the floor at 7:00 a.m. I see no active medication orders. No new morning labs were ordered. She received 5 mg of IV metoprolol at 5:00 a.m. Magnesium, 2 g at 1:00 a.m. IV diltiazem 20 mg at 11:00 p.m. Oral metoprolol at 10:00 p.m. Furosemide 40 mg IV push at 8:00 p.m. last nigh ECG PAST MEDICAL HISTORY: Hypertension -treated with lisinopril and hydrochlorothiazide Chronic anemia, patient has known this but was unclear about the details. She does stated she does not like to take iron it constipates her. 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 Two grown daughters. Lives in [place], however spends a lot of time on the road and lives out of her truck. INVESTIGATIONS: LABS/MICRO/ECG/IMAGING 132/56 Pulse 74 Respirations 20 Afebrile 94% on room air EKG shows sinus rhythm with short NC. Rate was 87. CBC: Leukopenia with a total white blood cell count of 3.76, predominant ly mphocytes at 45% monocytes of 11.7% Hemoglobin 8.9 and hematocrit 30.2, repeat hemoglobin is down to 8.5 Platelets 86 INR 1.24 D-dimer 2.2 Venous blood gas unremarkable Metabolic panel unremarkable other than an elevated alk phos at 356., BNP 2600 2+ urine blood No urine or blood cultures pending Chest abdomen pelvis CT 1. Right greater than left basilar pleural effusion with adjacent compressive atelectasis and/or infiltrates with moderate central bronchial thickening. No evidence of pulmonary embolus. 2. Markedly enlarged heterogeneous somewhat nutmeg appearing liver which may represent sequela of hepatitis with periportal edema. 3. Mild ascites fluid seen throughout the 4 quadrants of the abdomen predominantly in the upper quadrants. 4. Enlarged epigastric, retroperitoneal, pelvic sidewall and inguinal lymph nodes which may be reactive in nature; however, a subtle, early lymphoproliferative malignancy may not be entirely excluded. 5. Somewhat heterogeneous thickened appearance of the endometrium with a focal area of enhancement. Consider further evaluation with pelvic ultrasound for improved characterization. Transvaginal ultrasound done after chest abdomen pelvis CT 1. Heterogeneous mildly thickened endometrium, nonspecific. 2. Hypoechoic lesion in the mid uterine body, likely corresponding to the area of focal enhancement on prior CT abdomen and pelvis. Differential considerations include submucosal fibroid or polyp, however endometrial mass is not excluded. Consider further evaluation with MRI of the pelvis or tissue sampling. 3. Nonvisualization of the ovaries. Chest x-ray from admission Bibasilar pleural effusions with adjacent compressive atelectasis versus infiltrates and mild superimposed pulmonary edema. REVIEW OF SYSTEMS: 12-point ROS completed with patient and negative unless otherwise stated in HPI or below. PHYSICAL EXAM: CODE STATUS: Full code CONSTITUTIONAL: Thin. Mildly protuberant abdomen. Older than stated age. Conversive, good historian. A/O. Knows setting and context. VITAL SIGNS: see record. HEENT: Normocephalic, atraumatic. PERRL, EOMI, conjunctivae pink, no scleral icterus. Ears and nose externally normal. Pharynx normal. NECK: No JVD. No carotid bruit, no thyromegaly, no adenopathy. CHEST: Clear to auscultation bilaterally HEART: S1 and S2 normal. No harsh murmurs. No edema Abdomen: Protuberant, nontender. MUSCULOSKELETAL: No gross joint deformity or swelling. NEURO: Cranial nerves intact. Grossly intact. No asymmetric findings. SKIN: No rashes, petechiae, concerning changes PSYCHIATRIC: Euthymic. ADMIT DVT: Chronic liver disease anticoagulated pathologically GI: PO intake Time spent: 70 minutes examining patient, conferring with family and patient, care staff, developing care plan [facility] Medical History (Updated 06/11/22 @ 13:00 by Jennifer Dixon MD) Congestive heart failure (CHF) Hypertension Surgical History (Updated 06/10/22 @ 17:13 by Judith Chadwick RN) S/P rotator cuff repair Social History Highest level of school completed/degree received: 12th grade, no diploma Smoking Status: Former smoker What tobacco products do you use: cigarettes Smoking quit date/years: <= 15 years ago and cigars Do you use any of these nicotine containing products: None Second hand tobacco smoke exposure: Yes (from spouse) How often do you have a drink containing alcohol: monthly or less Alcohol type: wine How many standard drinks containing alcohol do you have on a typical day: 1 or 2 How often do you have six or more drinks on one occasion: Never AUDIT-C Alcohol total score: 1 Non-prescribed substance use: denies use Caffeine: Yes service: No Meds Home Medications and Allergies Allergies Allergy/AdvReac Type Severity Reaction Status Date / Time Sulfa (Sulfonamide Allergy Unknown Verified 06/10/22 20:32 Antibiotics) Exam Const: Vital Signs, click to edit/add: Vital Signs - 24 hr 06/10/22 15:56 06/10/22 17:00 06/10/22 18:47 Temperature 98.5 F Pulse Rate Pulse Rate [Apical ] 89 93 Pulse Rate [Pulse Oximeter] Respiratory Rate 32 H 20 12 Blood Pressure [Le ft Arm] Blood Pressure [Le ft Upper Arm] 160/76 H 134/107 H 144/56 H Pulse Oximetry 94 97 95 Oxygen Delivery Me thod Room Air Room Air Oxygen Flow Rate 06/10/22 20:30 06/10/22 23:19 06/10/22 21:30 Temperature Pulse Rate Pulse Rate [Apical ] 160 H 92 Pulse Rate [Pulse Oximeter] Respiratory Rate 26 H 20 30 H Blood Pressure [Le ft Arm] Blood Pressure [Le ft Upper Arm] 161/82 H 150/77 H 168/83 H Pulse Oximetry 93 97 96 Oxygen Delivery Me thod Room Air Room Air Oxygen Flow Rate 06/10/22 18:00 06/10/22 22:00 06/10/22 23:00 Temperature Pulse Rate Pulse Rate [Apical ] 91 92 146 H Pulse Rate [Pulse Oximeter] Respiratory Rate 34 H 24 27 H Blood Pressure [Le ft Arm] Blood Pressure [Le ft Upper Arm] 145/74 H 142/63 H 150/77 H Pulse Oximetry 93 97 Oxygen Delivery Me thod Room Air Oxygen Flow Rate 06/10/22 23:30 06/11/22 00:00 06/11/22 00:30 Temperature Pulse Rate Pulse Rate [Apical ] 126 H 113 H 117 H Pulse Rate [Pulse Oximeter] Respiratory Rate 28 H 28 H 30 H Blood Pressure [Le ft Arm] Blood Pressure [Le ft Upper Arm] 126/62 126/62 121/61 Pulse Oximetry 90 90 94 Oxygen Delivery Me thod Room Air Room Air Oxygen Flow Rate 06/11/22 01:00 06/11/22 03:00 06/11/22 02:00 Temperature Pulse Rate Pulse Rate [Apical ] 122 H 72 130 H Pulse Rate [Pulse Oximeter] Respiratory Rate 31 H 26 H 28 H Blood Pressure [Le ft Arm] Blood Pressure [Le ft Upper Arm] 124/79 124/79 127/88 Pulse Oximetry 90 96 94 Oxygen Delivery Me thod Room Air Nasal Cannula Nasal Cannula Oxygen Flow Rate 2 2 06/11/22 02:30 06/11/22 01:30 06/11/22 03:47 Temperature 98.5 F Pulse Rate Pulse Rate [Apical ] 123 H 116 H Pulse Rate [Pulse Oximeter] 72 Respiratory Rate 26 H 26 H 20 Blood Pressure [Le ft Arm] 132/56 L Blood Pressure [Le ft Upper Arm] 125/74 133/74 Pulse Oximetry 98 89 94 Oxygen Delivery Me thod Nasal Cannula Room Air Room Air Oxygen Flow Rate 2 06/11/22 03:47 06/11/22 04:12 06/11/22 02:00 Temperature Pulse Rate 74 Pulse Rate [Apical ] Pulse Rate [Pulse Oximeter] Respiratory Rate 20 Blood Pressure [Le ft Arm] Blood Pressure [Le ft Upper Arm] Pulse Oximetry 94 94 Oxygen Delivery Me thod Room Air Nasal Cannula Oxygen Flow Rate 2 Hospitalist - H&P: Result Labs Labs: Short CBC 06/10/22 Range/Units 17:10 WBC 3.76 L (4.50-11.00) K/uL Hgb 8.9 L (12.0-16.0) gm/dL Hct 30.2 L (33.0-51.0) % Plt Count 86 L (140-440) K/uL BMP 06/10/22 17:10 Sodium 140 Potassium 4.3 Chloride 111 Carbon Dioxide 21 BUN 13 Creatinine 0.6 Glucose 92 Calcium 8.5 Cardiac Enzymes 06/10/22 06/10/22 Range/Units 17:10 17:10 Total Creatine Kinase 74 (41-117) U/L Troponin I < 0.01 L (0.01-0.04) ng/mL Liver Function 06/10/22 Range/Units 17:10 Total Bilirubin 0.9 (0.1-1.5) mg/dL Direct Bilirubin 0.5 (0.0-0.5) mg/dL AST 34 (12-35) U/L ALT 23 (4-35) U/L Alkaline Phosphatase 356 H (40-150) U/L Albumin 3.3 (3.3-5.0) g/dL Urine 06/10/22 Range/Units 17:30 Urine Color Yellow (Yellow) Urine Appearance Clear (Clear) Urine pH 5.5 (5.0-8.5) Ur Specific [place] 1.020 (1.000-1.030) Urine Protein Negative (Negative) Urine Glucose (UA) Negative (Negative) Assessment and Plan Assessment and plan (1) Atrial fibrillation with rapid ventricular response: Status: Acute Assessment and Plan: Will start patient on a p.o. regimen of oral metoprolol. For anticoagulation, this is tricky as she does have a coagulopathy from chronic liver disease. At this point I may put her on aspirin but I would like her to see her primary care doctor and discuss the risks of anticoagulation and side effects based on her known liver disease. (2) LAD (lymphadenopathy), retroperitoneal: Status: Acute Assessment and Plan: Concerning for a myeloproliferative disorder or early malignancy. I have ord ered a blood smear. She should see heme Onc and have a bone marrow biopsy or further investigations. (3) Congestive heart failure: Status: Acute Assessment and Plan: Echo this afternoon. BNP elevated. Clinical response to Lasix encouraging. (4) Abdominal ascites: Status: Acute Assessment and Plan: Secondary to chronic liver disease (5) Chronic disease anemia: Status: Acute Assessment and Plan: Myeloproliferative disorder? Hematology consult needed. (6) Endometrial mass: Status: Acute Assessment and Plan: Disability Counselor consult for endometrial biopsy needed (7) Coagulopathy: Status: Acute Assessment and Plan: Secondary to chronic liver disease (8) Pneumonia: Status: Acute Assessment and Plan: Possibly atelectasis, treating for community-acquired pneumonia. Likely immunocompromised secondary to leukopenia, anemia and chronic liver disease. (9) Hyperthyroidism: Status: Acute Assessment and Plan: Checking free T4, T3. Thyroid ultrasound and thyroid antibodies. May be part of the cause of her AFib RVR. (10) Thrombocytopenia: Status: Acute Assessment and Plan: Myeloproliferative disorder as above (11) Chronic liver disease: Status: Acute Assessment and Plan: nutmeg liver. Hepatitis panel pending. Needs GI outpatient workup. Presence of ascites, coagulopathy, elevated alk phos. I did speak with Dr. Brown in radiology and ultrasound would not offer more input this nodular dense liver. Outpatient MRI could be considered.
[2022-06-11 08:49] LABS: Ionized Calcium* 1.12 mmol/L (1.11-1.30); Lactate* 1.1 mmol/L (0.5-1.9)
[2022-06-11 08:58] LABS: Hematocrit 28.6 % (33.0-51.0); Hemoglobin* 8.5 gm/dL (12.0-16.0); Mean Corpuscular HGB Conc 30 gm/dL (32-36); Mean Corpuscular Hemoglobin 21 pg (26-34); Mean Corpuscular Volume 72 fL (80-100); Platelet Count* 75 K/uL (140-440); Red Blood Count 3.98 m/uL (4.00-5.20); White Blood Count* 3.71 K/uL (4.50-11.00)
[2022-06-11 09:11] LABS: Albumin* 3.2 g/dL (3.3-5.0); Chloride* 112 mmol/L (96-114); Sodium* 142 mmol/L (135-149)
[2022-06-11 09:12] LABS: Potassium* 4.2 mmol/L (3.6-5.1)
[2022-06-11 09:13] LABS: Bilirubin Total* 0.8 mg/dL (0.1-1.5); Creatinine* 0.7 mg/dL (0.5-1.5); Est. Creatinine Clearance* 43.45; Estimated Glomerular Filt Rate 97 ml/min
[2022-06-11 09:14] LABS: Alanine Aminotransferase* 22 U/L (4-35); Alkaline Phosphatase* 343 U/L (40-150); Aspartate Amino Transferase* 30 U/L (12-35); Blood Urea Nitrogen* 14 mg/dL (7-30); Carbon Dioxide* 23 mmol/L (20-32); Gamma Glutamyl Transpeptidase* 149 U/L (8-55); Glucose* 92 mg/dL (60-115); Lipase* 45 U/L (23-300); Total Protein* 6.1 g/dL (6.0-8.3)
[2022-06-11 09:15] LABS: Calcium* 8.4 mg/dL (8.4-10.6); Magnesium* 2.1 mg/dL (1.5-2.6)
[2022-06-11 09:18] LABS: C Reactive Protein* 0.8 mg/dL (0.5-1.0)
[2022-06-11 09:20] LABS: Hemoglobin A1C* 5.15 % (0-5.6)
[2022-06-11] MEDS: cefTRIAXone 1 GM in 0.9 % SODIUM CHLORIDE Mini-bag 100 ML IVPB (09:20)
[2022-06-11] MEDS: FUROSEMIDE 40 MG TABLET PO (09:21)
[2022-06-11] MEDS: lisinopriL 5 MG TABLET PO (09:21)
[2022-06-11 09:24] LABS: NT Pro B Type NatriureticPept* 3360 PG/mL (0-125)
[2022-06-11 09:25] LABS: Slide Review Reflex No
[2022-06-11 09:26] LABS: INR 1.24 (0.91-1.10)
[2022-06-11 09:31] LABS: Procalcitonin* 0.11 ng/mL (<0.50)
[2022-06-11 09:34] LABS: Troponin I* < 0.01 ng/mL (0.01-0.04)
[2022-06-11 09:42] LABS: Immature Reticulocyte Fraction 20.3 % (3.0-15.9); Reticulocyte Hemoglobin Equivi 17.9 pg (29.0-35.0); Reticulocyte Percent 2.2 % (0.5-2.0); Reticulocytes Absolute 0.09 # (0.03-0.08)
[2022-06-11 09:56] LABS: Thyroid Stimulating Hormone* < 0.015 uIU/mL (0.270-4.20)
[2022-06-11 09:58] LABS: Ferritin* 71.4 ng/mL (11.1-264.0)
[2022-06-11] MEDS: AZITHROMYCIN 500 MG in 0.9 % SODIUM CHLORIDE 250 ml 250 ML 255 MG IVPB (10:27)
[2022-06-11] MEDS: ENOXAPARIN 60 MG/0.6 ML INJ 55 MG SUBCUT (10:28)
--- NOTE | 2022-06-11 10:32 | RESP.RT ---
PT walked around unit on RA. SPO2 88-92%. PT states she is not short of breath or feeling dizzy. When pt returned to room and sat down SPO2 92% Pulse 80-85 during walk.
--- NOTE | 2022-06-11 11:38 | CRLHL7_ITS ---
For Patients: As a result of the Cures Act, medical imaging exams and procedure reports are released immediately into your electronic medical record. You may view this report before your referring provider. If you have questions, please contact your health care provider. INDICATION: New hypothyroidism. TECHNIQUE: Ultrasound thyroid with neely-scale and color Doppler analysis. COMPARISON: None FINDINGS: Right lobe: 6.8 x 2.3 x 2.2 cm. Left lobe: 6.4 x 2.4 x 2.2 cm. Nodules: None. Echotexture of the thyroid parenchyma is heterogeneous. Color Doppler analysis demonstrates hypervascularity. The isthmus is normal. No evidence of lymphadenopathy or parathyroid mass. IMPRESSION: Moderately enlarged hypervascular thyroid gland suggesting thyroiditis. No nodules. Dictated by David Tobar MD @ 06/11/2022 2:54:33 PM (Electronically Signed)
[2022-06-11 13:34] LABS: Free T4 Free Thyroxine* > 6.99 ng/dL (0.70-1.85)
[2022-06-11] MEDS: POTASSIUM CHLORIDE 10 MEQ CAPSULE ER 20 MEQ PO (14:27)
--- NOTE | 2022-06-11 16:23 | PC.NURSE ---
Duplicate discharge orders for Lasix, Potassium, and Metoprolol on discharge MAR. Per Dr. Dixon, medications should only be ordered once. Removed duplicates from patient copy of Lasix, Potassium, and Metoprolol Succinate. One order for each remains.
--- NOTE | 2022-06-11 23:20 | PC.NURSE ---
Discharge Summary: Patient discharged home at 1635 with all personal belongings accompanied by spouse. Discharge instructions including diagnosis, medications and follow up plans discussed with patient and voiced understanding. SL removed x2 with tip intact.
[2022-06-12 10:31] LABS: Free T3 25.7 pg/mL (2.5-4.3)
[2022-06-12 13:46] LABS: Hepatitis B Core Antibody, IgM Negative (Negative); Hepatitis B Surface Antigen Negative (Negative); Hepatitis C Antibody by CIA Negative (Negative)
== END 2022-06-11 16:35 | disposition home or self-care (01) | DRG 201 ==
LOC: ED 06-11 02:39 → MEDSURG 06-11 08:19
PROVIDERS: Family Medicine; Admitting Provider Family Medicine; Emergency Provider Family Medicine; Visit Provider Family Medicine
DX: I48.0 Paroxysmal atrial fibrillation (principal); K76.1 Chronic passive congestion of liver; R18.8 Other ascites; J18.9 Pneumonia, unspecified organism; I11.0 Hypertensive heart disease with heart failure; I50.31 Acute diastolic (congestive) heart failure; D61.818 Other pancytopenia; D84.9 Immunodeficiency, unspecified; R59.0 Localized enlarged lymph nodes; D46.9 Myelodysplastic syndrome, unspecified; E05.90 Thyrotoxicosis, unspecified without thyrotoxic crisis or storm; E06.9 Thyroiditis, unspecified; D69.6 Thrombocytopenia, unspecified; D68.4 Acquired coagulation factor deficiency; N85.9 Noninflammatory disorder of uterus, unspecified
CPT/HCPCS: 36415; 71046; 71260; 74177; 76536; 76830; 76856; 80048; 80053; 80074; 80076; 81003; 81015; 82330; 82550; 82728; 82803; 82977; 83036; 83605; 83690; 83735; 83880; 84145; 84439; 84443; 84481; 84484; 85025; 85027; 85045; 85379; 85610; 85730; 86140; 87086; 87635; 93005; 93306; 94761; 99284; 99285; 99291; G0378; A9270; J0456; J0696; J1650; J1940; J3475; J7050; J7120; Q9967